=== PATIENT | female | born 1945 | race African-American/Black ===

== ENCOUNTER 2023-09-21 09:15 | Emergency (ER) | payer MEDICARE, BC, OTHER ==
[~2023-09-21] VITALS: Ht 157.5 cm; Wt 100.0 kg
[2023-09-21 09:18] VITALS: TEMP 98.8; O2SAT 100
[2023-09-21 10:02] LABS: BASOPHILS % 0.5 % (0.0-2.0); EOSINOPHILS % 0.4 % (0.0-5.0); HEMATOCRIT. 32.3 % (36.0-48.0); HEMOGLOBIN. 10.9 g/dL (12.0-16.0); LYMPHOCYTES % 10.1 % (20.0-50.0); MEAN CORPUSCULAR HEMOGLOBIN 32.2 pg (28.0-32.0); MEAN CORPUSCULAR HGB CONC 33.7 g/dL (31.0-37.0); MEAN CORPUSCULAR VOLUME 95.3 fL (81.0-99.0); MEAN PLATELET VOLUME 7.8 fl (7.4-10.4); MONOCYTES % 8.1 % (2.0-8.0); NEUTROPHILS % 80.9 % (40.0-76.0); PLATELET 182 x1000/uL (130-400); RED BLOOD CELL COUNT 3.38 mill/uL (4.2-5.4); WHITE BLOOD COUNT 8.8 x1000/uL (4.5-11.0)
[2023-09-21 10:06] LABS: CHLORIDE 105 mEq/L (98-107); POTASSIUM 3.3 mEq/L (3.5-5.1); SODIUM 137 mEq/L (136-145)
[2023-09-21 10:07] LABS: CALCIUM 7.5 mg/dL (8.7-10.4); CARBON DIOXIDE 27 mEq/L (21-32)
[2023-09-21 10:12] LABS: CREATININE 0.5 mg/dL (0.6-1.0); GLUCOSE 67 mg/dL (70-105); UREA NITROGEN BLOOD 11 mg/dL (9-23)
[2023-09-21 10:13] LABS: TROPONIN I HIGH SENSITIVITY 17 ng/L (3.0-34)
[2023-09-21 10:46] LABS: ETHANOL BLOOD < 10 mg/dL (<10)
[2023-09-21] MEDS: POTASSIUM BICARB/CIT ACID 25 MEQ TABLET.EFF PO NR (11:48)
[2023-09-21] MEDS ORDERED: CLONIDINE 0.1MG TABLET PO PRN (12:15)
[2023-09-21] MEDS ORDERED: ACETAMINOPHEN 325MG TABLET PO PRN ×2 (12:15)
[2023-09-21] MEDS ORDERED: IPRATROPIUM/ALBUTEROL 0.5-3(2.5)MG/3ML NEB HHN PRN (12:15)
[2023-09-21] MEDS ORDERED: DOCUSATE SODIUM 100MG CAPSULE PO PRN (12:15)
[2023-09-21] MEDS ORDERED: MAGNESIUM/ALUMINUM HYDROXIDE/SIMETHICONE 30ML UDC PO PRN (12:15)
[2023-09-21] MEDS ORDERED: GUAIFENESIN 200MG/10ML SUGAR FREE UDC PO PRN (12:15)
[2023-09-21] MEDS ORDERED: ONDANSETRON HCL 4MG/2ML INJ IV PRN (12:15)
[2023-09-21] MEDS ORDERED: HYDROCODONE/ACETAMINOPHEN 5/325MG TABLET PO PRN (12:30)
[2023-09-21] MEDS: LOSARTAN 100 MG TABLET PO SCH (13:30)
[2023-09-21] MEDS: AMLODIPINE 10MG TABLET PO SCH (13:30)
[2023-09-21] MEDS: FERROUS SULFATE 325MG TABLET PO SCH (13:30)
[2023-09-21] MEDS: POTASSIUM CHLORIDE 20MEQ TABLET SR PO NR (13:31)
[2023-09-21 13:34] VITALS: BP 149/62; PULSE 86; RESP 17
[2023-09-21] MEDS: DEXT 5%/LACTATED RINGERS 1,000 ML IV SCH (13:35)
[2023-09-21] MEDS: ATORVASTATIN CALCIUM 40MG TABLET PO SCH (13:36)
[2023-09-21] MEDS ORDERED: FAMOTIDINE 20MG TABLET PO SCH (21:00)
== END 2023-09-21 15:03 | disposition short-term general hospital (02) ==
LOC: ER 09:15 → EDBEDREQTM 10:51 → EDBEDREQ 10:51 → CANBEDREQ 12:51 → ER 15:03
DX: M25.40 Effusion, unspecified joint (principal); I10 Essential (primary) hypertension; R41.82 Altered mental status, unspecified; Z86.73 Personal history of transient ischemic attack (TIA), and cerebral infarction without residual deficits; Z90.49 Acquired absence of other specified parts of digestive tract; Z88.0 Allergy status to penicillin
CPT/HCPCS: 36415; 71045; 72170; 80048; 80320; 83036; 83880; 84484; 85025; 93005; 93970; 99285; G0480